=== PATIENT | female | born 1955 | race Caucasian/White ===

== ENCOUNTER → 2017-11-05 | Outpatient (CLI) | payer MEDICARE ==
[~2017-11-05] MED LIST: CLONAZEPAM1 MG PO; EFFEXOR100 MG PO; FLEXERIL10 MG PO; HYDROCODONE BIT1 TA3 PO; PRAVASTATIN SOD80 MG PO
== END ==
LOC: BHSO 10:52
DX: F31.81 Bipolar II disorder (principal)
CPT/HCPCS: G0463

== ENCOUNTER → 2018-03-27 | Outpatient (CLI) | payer MEDICARE | LOC: BHSO 11:05 | DX: F31.81 Bipolar II disorder (principal) | CPT/HCPCS: G0463 ==

== ENCOUNTER → 2018-09-13 | Outpatient (CLI) | payer MEDICARE | LOC: BHSO 10:35 | DX: F31.81 Bipolar II disorder (principal) | CPT/HCPCS: G0463 ==

== ENCOUNTER → 2018-10-11 | Outpatient (CLI) | payer MEDICARE | LOC: BHSO 12:26 | DX: F31.81 Bipolar II disorder (principal) | CPT/HCPCS: G0463 ==

== ENCOUNTER → 2018-12-16 | Outpatient (CLI) | payer MEDICARE | LOC: BHSO 10:05 | DX: F31.81 Bipolar II disorder (principal) | CPT/HCPCS: G0463 ==

== ENCOUNTER → 2019-04-17 | Outpatient (CLI) | payer MEDICARE | LOC: BHSO 09:51 | DX: F31.81 Bipolar II disorder (principal) | CPT/HCPCS: G0463 ==

== ENCOUNTER → 2020-04-13 | Outpatient (CLI) | payer MEDICARE | LOC: BHSO 11:28 | DX: F31.81 Bipolar II disorder (principal) | CPT/HCPCS: G0463 ==